=== PATIENT | female | born 1995 | race Hispanic/Latino ===

== ENCOUNTER 2019-03-08 00:05 | Outpatient (CLI) | payer BC, MEDICAID ==
[2019-03-08 00:30] VITALS: BP 120/77
--- NOTE | 2019-03-08 01:41 | Ultrasound Report ---
ULTRASOUND BIOPHYSICAL PROFILE AND LIMITED OB PELVIC ULTRASOUND INDICATION / CLINICAL INFORMATION: well-being. COMPARISON: None available. FINDINGS: BREATHING MOVEMENT = 2 GROSS BODY MOVEMENT = 2 TONE = 2 QUALITATIVE AMNIOTIC FLUID VOLUME = 2 TOTAL BIOPHYSICAL SCORE = 8/8 AMNIOTIC FLUID INDEX (cm) = 8.9 PRESENTATION: Cephalic. HEART RATE (beats per minute): 137 The placenta is located anteriorly, is grade 2 and is free of the os. IMPRESSION: 1. biophysical profile = 8/8 2. SAMINA 8.9 cm. Signer Name: Sg Mathew MD Signed: 03/08/2019 1:37 AM Workstation Name: [id number]
== END 2019-03-08 02:34 | disposition home or self-care (01) ==
LOC: TRG 00:05
PROVIDERS: ATTEND Obstetrics & Gynecology
DX: O47.1 False labor at or after 37 completed weeks of gestation (principal); Z3A.40 40 weeks gestation of pregnancy
CPT/HCPCS: 76815; 76819

== ENCOUNTER 2019-03-09 12:54 | Inpatient (IN) | payer BC, MEDICAID ==
--- NOTE | 2019-03-09 17:53 | Ultrasound Report ---
LIMITED OBSTETRIC ULTRASOUND WITH BIOPHYSICAL PROFILE HISTORY: well-being. Clinical gestational age 40 weeks 2 days COMPARISON: Obstetric ultrasound one day prior TECHNIQUE: Obstetric sonogram performed for biophysical profile assessment. FINDINGS: Gestation: Single intrauterine Presentation: Cephalic Amniotic Fluid Index: 13.0 cm ANATOMY: Detailed anatomic survey was not requested. heart rate is 145 beats per minute. BIOPHYSICAL PROFILE: Movement: 2 Tone: 2 Breathin Amniotic Fluid: 2 Total: 8 out of 8 IMPRESSION 1. Biophysical Profile 8/8. 2. SAMINA 13.0 cm. Signer Name: Amber Mckenna MD Signed: 03/09/2019 5:48 PM Workstation Name: [id number]
--- NOTE | 2019-03-09 18:02 | Ultrasound Report ---
ULTRASOUND BIOPHYSICAL PROFILE INDICATION / CLINICAL INFORMATION: Amniotic fluid index. COMPARISON: 03/08/2019 FINDINGS: BREATHING MOVEMENT = 2 GROSS BODY MOVEMENT = 2 TONE = 2 QUALITATIVE AMNIOTIC FLUID VOLUME = 2 TOTAL BIOPHYSICAL SCORE = 8/8 AMNIOTIC FLUID INDEX (cm) = 13.0 PRESENTATION: Cephalic. HEART RATE (beats per minute): 1:30 IMPRESSION: Normal amniotic fluid index of 13 cm Signer Name: Kyle Lew MD Signed: 03/09/2019 5:58 PM Workstation Name: [id number]
[2019-03-09] MEDS ORDERED: ePHEDrine SULFATE 50 MG/1 ML INJ IV PRN ×2 (18:16→20:56)
[2019-03-09] MEDS ORDERED: fentaNYL 100 MCG/2 ML INJ IV PRN (18:16)
[2019-03-09] MEDS ORDERED: TERBUTALINE 1 MG/1 ML INJ IVP PRN (18:16)
[2019-03-09] MEDS ORDERED: LIDOCAINE (2%) 20 MG/1 ML VIAL 20 ML MDV INFILTRATI ONE (18:16)
[2019-03-09] MEDS ORDERED: BUTORPHANOL 2 MG/1 ML INJ IV PRN (18:16)
[2019-03-09] MEDS ORDERED: TERBUTALINE 1 MG/1 ML INJ SUB-Q PRN (18:16)
[2019-03-09] MEDS ORDERED: MINERAL OIL 30 ML ORAL LIQD PO PRN (18:16)
[2019-03-09 18:58] LABS: Hematocrit 36.5 % (30.3-42.9); Mean Corpuscular HGB Conc 33 % (30-34); Mean Corpuscular Volume 89 fl (79-97); Platelet Count 295 K/mm3 (140-440); Red Cell Distribution Width 13.2 % (13.2-15.2)
[2019-03-09] MEDS ORDERED: OXYTOCIN 20 UNIT/1000ML DRIP 20 UNITS/1,000 ML BAG IV SCH (19:00)
[2019-03-09] MEDS ORDERED: LACTATED RINGERS 1,000 ML IV SCH (19:00)
[2019-03-09] MEDS ORDERED: OXYTOCIN DRIP 30 UNITS/500 ML BAG IV SCH (19:00)
[2019-03-09] MEDS ORDERED: NALOXONE 2 MG/2 ML INJ IV PRN (20:56)
[2019-03-09] MEDS ORDERED: fentaNYL-BUPIV 2 MCG/ML-0.125% 200 MCG/100 ML BAG EPIDURAL SCH (21:00)
[2019-03-09] MEDS ORDERED: ONDANSETRON 4 MG/2 ML INJ ONE (21:13)
[2019-03-09] MEDS ORDERED: ONDANSETRON 4 MG/2 ML INJ IV PRN (21:33)
[2019-03-10] MEDS ORDERED: BUPIVACAINE/PF (0.25%) 2.5 MG/ML 10 ML VIAL INFILTRATI ONE ×2 (01:04→09:55)
[2019-03-10] MEDS ORDERED: BUPIVACAINE/PF (0.5%) 5 MG/1 ML 10 ML VIAL INFILTRATI ONE ×2 (03:16→06:14)
[2019-03-10] MEDS ORDERED: LIDOCAINE 2%/EPINEPHRINE 1:200,000 VIAL (20 ML) INFILTRATI ONE ×2 (03:42→07:25)
[2019-03-10] MEDS ORDERED: METOCLOPRAMIDE 10 MG/2 ML INJ ONE (07:21)
[2019-03-10] MEDS ORDERED: FAMOTIDINE 20 MG/2 ML INJ IV ONE ×2 (07:21→07:38)
[2019-03-10] MEDS ORDERED: BICITRA ORAL LIQD 30ML ONE (07:21)
[2019-03-10] MEDS ORDERED: ceFAZolin/Water 2 GM/20 ML 2 GM/20 ML SYRINGE IV ONE (07:21)
[2019-03-10] MEDS ORDERED: DEXMEDETOMIDINE 200 MCG/2 ML VIAL IV ONE (07:27)
--- NOTE | 2019-03-10 07:31 | History and Physical Report ---
History of Present Illness Date of examination: 03/10/19 Date of admission: 03/09/19 12:55 Chief complaint: contractions History of present illness: This is a 23 yo at 40+3 weeks came in c/o contractions. She was noted to be 4cm and had US and BPP and during course ruptured clear fluid. Patient was admitted and given an epidural and throughout nite progressed to 8 cm. Patient had meconium thick with strip cat . At the time we discussed course and patient agreed to have a . her course include chlamydia at 7 weeks YO neg. abn GCT with 3hr normal. GBS neg. 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 denies: smoking, alcohol abuse, prescription drug abuse - Obstetrical History Expected Date of Delivery: 03/07/19 Actual Gestation: 40 Week(s) 3 Day(s) : 1 Para: 0 Hx # Term Pregnancies: 0 Number of Pregnancies: 0 Spontaneous Abortions: 0 Induced : 0 Number of Living Children: 0 Medications and Allergies Allergies Allergy/AdvReac Type Severity Reaction Status Date / Time No Known Drug Allergies Allergy Unknown Verified 03/08/19 00:31 Active Meds: Active Medications Butorphanol Tartrate (Stadol) 2 mg IV Q2H PRN PRN Reason: Pain , Severe (7-10) Ephedrine Sulfate (Ephedrine Sulfate) 10 mg IV Q2M PRN PRN Reason: Hypotension Ephedrine Sulfate (Ephedrine Sulfate) 10 mg IV Q2M PRN PRN Reason: Hypotension Fentanyl (Sublimaze) 100 mcg IV Q2H PRN PRN Reason: Labor Pain Oxytocin/Sodium Chloride (Pitocin/Ns 20 Unit/1000ml Drip) 20 units in 1,000 mls @ 125 mls/hr IV DIRECT HALEY Oxytocin/Sodium Chloride (Pitocin/Ns 30 Unit/500ml) 30 units in 500 mls @ 1 mls/hr IV TITR HALEY; Protocol Last Admin: 03/10/19 03:45 Dose: 1 milliunits/min, 1 mls/hr Documented by: Lactated Ringer's (Lactated Ringers) 1,000 mls @ 125 mls/hr IV DIRECT HALEY Fentanyl/Bupivacaine/Sodium Chlor (Fentanyl-Bupiv 2 Mcg/Ml-0.125%) 200 mcg in 100 mls @ 12 mls/hr EPIDURAL TITR HALEY; Protocol Last Admin: 03/09/19 21:19 Dose: 12 mls/hr Documented by: Mineral Oil (Mineral Oil) 30 ml PO QHS PRN PRN Reason: Constipation Naloxone HCl (Naloxone) 0.2 mg IV Q5M PRN PRN Reason: Respiratory sedation Ondansetron HCl (Zofran) 4 mg IV Q4H PRN PRN Reason: Nausea And Vomiting Terbutaline Sulfate (Brethine) 0.25 mg SUB-Q ONCE PRN PRN Reason: Hyperstimulation/Hypertonicity Terbutaline Sulfate (Brethine) 0.25 mg IVP ONCE PRN PRN Reason: Hyperstimulation/Hypertonicity Review of Systems All systems: negative - Vital Signs Vital signs: Vital Signs Pulse BP Pulse Ox 107 H 119/82 97 03/09/19 13:08 03/09/19 13:08 03/09/19 13:08 Temp Pulse Resp BP Pulse Ox 98.2 F 67 18 130/68 99 03/09/19 19:16 03/10/19 07:17 03/09/19 19:16 03/10/19 07:03 03/10/19 07:17 - Physical Exam Breasts: Positive: normal Cardiovascular: Regular rate, Normal S1 Lungs: Positive: Clear to auscultation, Normal air movement Abdomen: Positive: normal appearance, soft, normal bowel sounds. Negative: distention, tenderness, guarding Genitourinary (Female): Positive: normal external genitalia, normal perenium Vagina: Positive: normal moisture Uterus: Positive: normal size Anus/Rectum: Positive: normal perianal skin Extremities: Positive: normal Deep Tendon Reflex Grade: Normal +2 - Obstetrical FHR: category 2 Cervical Dilatation: 8 Cervical Effacement Percentage: 90 station: -1 Uterine Contraction Pattern: Regular Uterine Tone Measurement Phase: Contraction Uterine Contraction Intensity: Moderate Results Result Diagrams: 03/09/19 18:30 Abnormal lab results 03/09/19 Range/Units 18:30 WBC 19.4 H (4.5-11.0) K/mm3 All other labs normal. Ultrasound: report reviewed Assessment and Plan A/P IUP 40+3 weeks Active labor Thick meconium, NST cat 2. discused r/b/a of csec which include bleeding infection, damage to pelvic and non pelvic organs, risk of hysterectomy and . patient agrees with plan and will proceed with primary csec
[2019-03-10] MEDS ORDERED: BICITRA ORAL LIQD 30ML PO ONE (07:38)
[2019-03-10] MEDS ORDERED: METOCLOPRAMIDE 10 MG/2 ML INJ IV ONE (07:38)
[2019-03-10] MEDS ORDERED: ONDANSETRON 4 MG/2 ML INJ ONE (07:42)
[2019-03-10] MEDS ORDERED: WATER FOR IRRIG STERILE 1,500 ML BOTTLE IR ONE (07:55)
[2019-03-10] MEDS ORDERED: ceFAZolin/Water 2 GM/20 ML 2 GM/20 ML SYRINGE IV NR (08:00)
[2019-03-10] MEDS ORDERED: SODIUM CHLORIDE 0.9% IRR 1,500 ML BOTTLE IR ONE (08:00)
[2019-03-10] MEDS ORDERED: LACTATED RINGERS 1,000 ML IV SCH (08:00)
[2019-03-10] MEDS ORDERED: OXYTOCIN 20 UNIT/1000ML DRIP 20 UNITS/1,000 ML BAG IV SCH ×2 (08:00→10:00)
[2019-03-10] MEDS ORDERED: MIDAZOLAM 2 MG/2 ML INJ ONE ×2 (08:06)
[2019-03-10] MEDS ORDERED: LIDOCAINE MPF (2%) 20 MG/1 ML VIAL 5 ML ONE (08:09)
[2019-03-10] MEDS ORDERED: KETAMINE 500 MG/5 ML VIAL MDV ONE (08:57)
[2019-03-10] MEDS ORDERED: LANOLIN/ZINC/DIMETHICONE (LANSINOH) 7 GM TP PRN (09:02)
[2019-03-10] MEDS ORDERED: PROMETHAZINE 25 MG RECT SUPP PR PRN (09:02)
[2019-03-10] MEDS ORDERED: MORPHINE 4 MG/1 ML INJ IV PRN (09:02)
[2019-03-10] MEDS ORDERED: WITCH HAZEL/ GLYCERIN PAD TP PRN (09:02)
[2019-03-10] MEDS ORDERED: MORPHINE 2 MG/1 ML INJ IV PRN (09:02)
[2019-03-10] MEDS ORDERED: ONDANSETRON 4 MG/2 ML INJ IV PRN (09:02)
[2019-03-10] MEDS ORDERED: ACETAMINOPHEN 325 MG TAB PO PRN (09:02)
[2019-03-10] MEDS ORDERED: NALOXONE 0.4 MG/1 ML INJ IV PRN (09:02)
[2019-03-10] MEDS ORDERED: KETOROLAC 30 MG/1 ML INJ IV PRN ×2 (09:02)
--- NOTE | 2019-03-10 09:08 | Procedure Note ---
OB Delivery Note - Delivery Date of Delivery: 03/10/19 Surgeon: AINSLEY BIRMINGHAM Estimated blood loss: other (800 cc) - Section Preop diagnosis: arrest of dilation, nonreassuring FHR tracing Postop diagnosis: same section procedure: section Disposition: PACU Complications: none Narrative: see op note - A Gender: Male (see peds for apgars as baby assessed in NICU)
--- NOTE | 2019-03-10 09:18 | Operative Report ---
Operative Report Operative Report: DATE OF OPERATION: 03/10/2019 PREOPERATIVE DIAGNOSES: 1. Intrauterine gestation at 40+3 weeks, in active labor 2. Arrest of dilatation. 3.Thick menconium 4. NRFHT POSTOPERATIVE DIAGNOSES: 14 THE[place]ORE OPERATION PERFORMED: Primary low transverse section. SURGEON: Sabiha Puri MD ANESTHESIA: Epidural. COMPLICATIONS: None. ESTIMATED BLOOD LOSS: 800 mL. DRAINS: Roldan catheter to the bladder. SPECIMENS TO PATHOLOGY: Cord blood for routine testing. OPERATIVE FINDINGS: A viable male and birthweight of 3810g was delivered from a cephalic presentation, persistent occiput posterior position. The cord contained 3 vessels. There was normal anterior fundal placenta. The amniotic fluid was thick meconium. See Pediatric note for Apgars. The uterus, fallopian tubes and ovaries were normal. DESCRIPTION OF OPERATION: The patient was brought to the operating suite in stable condition with epidural anesthesia on board and an indwelling catheter in place in the bladder. The patient was placed supine on the operating room table and rolled to her left side with a wedge. The abdomen was prepped and draped in standard fashion for section. After testing with forceps to assure an adequate anesthetic level, the surgery was commenced. We had counseled the patient extensively regarding the risks of the surgery including but not limited to stroke, embolus, phlebitis, pain, infection, hemorrhage, as well as injury to the infant and the internal organs such as the bowel, bladder, blood vessels, nerves, kidneys, ureters and pelvic organs. The patient was aware of the postoperative morbidity issues and recovery timeframes. The patient was aware she can form adhesions, which can result in obstruction of loop of bowel or ureter or chronic pain. She was aware that should she have hemorrhage and require blood transfusion, there was a small chance for exposure to hepatitis or HIV disease. With the scalpel, a Pfannenstiel skin incision was made. Dissection was carried down sharply through the subcutaneous tissues and fascia in a transverse plane with the scalpel, electrocautery and curved Jeong scissors. The fascia was sharply freed up superiorly and inferiorly from the underlying rectus muscles, which were bluntly and sharply divided. The peritoneum was entered carefully in a clear space with a curved hemostat. The peritoneal incision was then extended vertically with Metzenbaum scissors. A retractor and bladder blade were placed. A bladder flap was created by incising transversely through the peritoneum and vesicouterine fold and then bluntly dissecting the bladder distally. With the scalpel, a low transverse hysterotomy was commenced. The serosa and myometrium were scored with the scalpel. The uterine cavity was actually entered bluntly with a curved hemostat. The uterine incision was then extended laterally with the gear grinding machine operator's fingers. An intrauterine hand was placed and the head of the infant was brought up out of the pelvis into the uterine incision. With fundal pressure, he was delivered without difficulty. The nasopharynx and oropharynx were suctioned. The cord was doubly clamped and transected. The was then handed off to the nursery personnel. A cord pH was obtained, which subsequently revealed a normal value. Further cord blood was collected for routine testing. Intravenous Pitocin and antibiotics were administered. The placenta was manually removed. The uterine cavity was then curetted with a dry sponge and freed of the remaining membranes. The edges of the uterine incision were grasped with Rosa clamps. With the massage and the Pitocin, the uterus began to firm up normally. The uterine incision was then closed in 2 layers of 0 Vicryl sutures. The first suture was placed to the endometrium and myometrium. The second suture was placed through the endopelvic fascia and also reincorporated the bladder flap peritoneum. Peritoneal lavage was then performed. The pelvis and gutters were irrigated and suctioned and cleared of all blood and clots and amniotic fluid. The uterine incision was reinspected to assure hemostasis. The uterus, tubes and ovaries were inspected and were normal. Once we were satisfied with the hemostasis, attention was turned to closure of the abdominal incision. The peritoneum, muscles and fascia were closed in layers using 0-Vicryl sutures. The subcutaneous tissue was closed with 3-0 plain sutures. The skin was closed with a subcuticular suture of 4-0 Vicryl followed by benzoin, Steri-Strips and a Telfa dressing. The patient was moved to the recovery room in stable condition with the Roldan catheter draining clear urine. Instruments, sponge and needle counts were reported as correct. Estimated blood loss was 800 mL. There were no complications
--- NOTE | 2019-03-10 09:19 | Anesthesia Consultation ---
Anesthesia Consult and Med Hx Date of service: 03/10/19 - Airway Anesthetic Teeth Evaluation: Good ROM Head & Neck: Adequate Mental/Hyoid Distance: Adequate Mallampati Class: Class II Intubation Access Assessment: Probably Good - Pulmonary Exam CTA: Yes - Cardiac Exam Cardiac Exam: RRR - Pre-Operative Health Status ASA Pre-Surgery Classification: ASA2 Proposed Anesthetic Plan: Epidural - Pulmonary Hx Smoking: No Hx Asthma: No Hx Respiratory Symptoms: No SOB: No COPD: No Home Oxygen Therapy: No Hx Pneumonia: No Hx Sleep Apnea: No - Cardiovascular System Hx Hypertension: No Hx Coronary Artery Disease: No Hx Heart Attack/AMI: No Hx Angina: No Hx Percutaneous Transluminal Coronary Angioplasty (PTCA): No Hx Cardia Arrhythmia: No Hx Pacemaker: No Hx Internal Defibrillator: No Hx Valvular Heart Disease: No Hx Heart Murmur: No Hx Peripheral Vascular Disease: No - Central Nervous System Hx Neuromuscular Disorder: No Hx Seizures: No CVA: No Hx Back Pain: No Hx Psychiatric Problems: No - Gastrointestinal Hx Ulcer: No Hx Gastroesophageal Reflux Disease: No - Endocrine Hx Renal Disease: No Hx End Stage Renal Disease: No Hx Cirrhosis: No Hx Liver Disease: No Hx Insulin Dependent Diabetes: No Hx Non-Insulin Dependent Diabetes: No Hx Thyroid Disease: No Hx Hypothyroidism: No - Hematic Hx Anemia: No Hx Sickle Cell Disease: No - Other Systems Hx Alcohol Use: No Hx Substance Use: No Hx Cancer: No Hx Obesity: No
--- NOTE | 2019-03-10 09:20 | Anesthesia Day of Surgery ---
Anesthesia Day of Surgery - Day of Surgery Patient Examined: Yes Patient H&P Reviewed: Yes Patient is NPO: Yes Beta Blockers: No Cardiac Clearance: No Pulmonary Clearance: No Cem's Test: N/A
--- NOTE | 2019-03-10 09:22 | Post Anesthesia Evaluation ---
- Post Anesthesia Evaluation Patient Participated: Yes Airway Patent: Yes Stable Respiratory Function: Yes Nausea/Vomiting: No Temp > 96.8F: Yes Pain Manageable: Yes Adequeate Hydration: Yes Anesthesia Complications: No Block Receding Appropriately: Yes Patient on Ventilator: No
[2019-03-10] MEDS ORDERED: D5W/LACTATED RINGERS 1,000 ML IV SCH (10:00)
[2019-03-10] MEDS: oxyCODONE /ACETAMINOPHEN 5-325MG TAB PO PRN ×2 (14:08→19:40)
[2019-03-10 21:07] LABS: Hematocrit 30.2 % (30.3-42.9); Hemoglobin 10.1 gm/dl (10.1-14.3)
[2019-03-10] MEDS ORDERED: SENNOSIDES 8.6 MG TAB PO PRN (22:00)
[2019-03-10] MEDS: HYDROcodone/ACETAMINOPHEN 5-325 MG TAB PO PRN (23:37)
[2019-03-11] MEDS: oxyCODONE /ACETAMINOPHEN 5-325MG TAB PO PRN ×2 (03:06→14:00)
[2019-03-11] MEDS: HYDROcodone/ACETAMINOPHEN 5-325 MG TAB PO PRN ×2 (06:02→22:15)
--- NOTE | 2019-03-11 08:00 | Progress Note ---
Assessment and Plan POD1 s/p primary c section No flatus- initiate bowel regimen VSS Mild anemia- ferrous sulfate Desires infant's circumcision inpatient- sign consent Anticipate d/c to home on POD3 Subjective - Subjective Date of service: 03/11/19 Principal diagnosis: s/p primary c section Interval history: POD1 s/p primary c/s Patient reports: appetite normal, voiding normally, pain well controlled, ambulating normally, no flatus : in NICU (for observation. On room air.) Objective - Vital Signs Latest vital signs: Vital Signs Temp Pulse Resp BP BP Pulse Ox 03/11/19 05:06 98.7 F 78 20 96/58 97 03/10/19 23:30 98.1 F 127 H 20 113/79 98 03/10/19 20:09 98.2 F 88 20 125/73 98 03/10/19 15:22 98.2 F 67 16 117/68 97 03/10/19 12:02 98.5 F 70 20 117/63 96 03/10/19 10:41 98.4 F 73 18 134/75 98 03/10/19 09:50 68 16 124/72 91 03/10/19 09:45 66 16 124/72 90 03/10/19 09:40 76 12 121/73 95 03/10/19 09:35 70 14 109/72 93 03/10/19 09:30 98.1 F 72 17 118/73 93 03/10/19 09:25 74 16 116/77 93 03/10/19 09:20 78 15 120/68 93 03/10/19 09:15 77 15 120/68 92 03/10/19 09:09 97.5 F L 73 19 111/66 Intake and Output 03/10/19 03/10/19 03/11/19 15:59 23:59 07:59 Intake Total 2200 480 Output Total 1550 2200 500 Balance 650 -1720 -500 Intake: IV 2200 Oral 480 Output: Urine 1550 2200 500 Indwelling Catheter 1350 1400 Void 800 500 Other: Total, Intake Amount 240 Total, Output Amount 350 800 500 # Voids Void 1 2 - Exam Lungs: Present: Normal air movement Abdomen: Present: soft, tenderness Uterus: Present: firm, fundal height below umbilicus Extremities: Present: normal Incision: Present: dressed - Labs Labs: Abnormal lab results 03/10/19 Range/Units 20:56 Hct 30.2 L D (30.3-42.9) %
[2019-03-11] MEDS: IBUPROFEN 800 MG TAB PO PRN (10:22)
[2019-03-11] MEDS: MAGNESIUM HYDROXIDE (MOM) ORAL LIQD UDC PO PRN (10:22)
[2019-03-11] MEDS: PRENATAL VIT27-FE FUMARATE-FOLIC ACID VIT TAB PO SCH (10:23)
[2019-03-11] MEDS: FERROUS SULFATE 325 MG TAB PO SCH (10:23)
[2019-03-11] MEDS ORDERED: MEASLES, MUMPS & RUBELLA 12,500 UNIT/0.5 ML VACCINE SUB-Q ONE (12:00)
[2019-03-11] MEDS ORDERED: TETANUS,DIPH,PERTUSS(ACELL) VACCINE 0.5 ML SYRINGE IM ONE (12:00)
[2019-03-12] MEDS: MAGNESIUM HYDROXIDE (MOM) ORAL LIQD UDC PO PRN (02:35)
[2019-03-12] MEDS: SIMETHICONE 80 MG CHEW TAB PO PRN ×2 (02:35→09:57)
[2019-03-12] MEDS: IBUPROFEN 800 MG TAB PO PRN ×2 (02:35→10:00)
--- NOTE | 2019-03-12 07:38 | Progress Note ---
Assessment and Plan POD2 s/p primary c section VSS Mild anemia- ferrous sulfate Desires 's circumcision inpatient Anticipate d/c to home on POD3 Subjective - Subjective Date of service: 03/12/19 Principal diagnosis: s/p primary c section Interval history: POD2 s/p primary c/s Patient reports: appetite normal, voiding normally, pain well controlled, flatus, ambulating normally [place]: doing well, in NICU Objective - Vital Signs Latest vital signs: Vital Signs Temp Pulse Resp BP BP Pulse Ox 03/12/19 00:00 98.0 F 79 20 123/74 98 03/11/19 16:25 97.7 F 86 20 134/86 03/11/19 08:32 97.9 F 100 H 18 126/80 98 Intake and Output 03/11/19 03/11/19 03/12/19 15:59 23:59 07:59 Intake Total 600 240 240 Balance 600 240 240 Intake: Oral 240 240 240 Intake, Free Water 360 Other: Total, Intake Amount 120 240 240 # Voids Void 2 1 1 - Exam Lungs: Present: Normal air movement Abdomen: Present: soft Uterus: Present: firm, fundal height below umbilicus Incision: Present: normal, dry, intact
[2019-03-12] MEDS: PRENATAL VIT27-FE FUMARATE-FOLIC ACID VIT TAB PO SCH (09:56)
[2019-03-12] MEDS: FERROUS SULFATE 325 MG TAB PO SCH (09:57)
[2019-03-12] MEDS: HYDROcodone/ACETAMINOPHEN 5-325 MG TAB PO PRN (15:44)
[2019-03-12] MEDS: oxyCODONE /ACETAMINOPHEN 5-325MG TAB PO PRN (22:34)
--- NOTE | 2019-03-13 08:16 | Progress Note ---
Assessment and Plan A/P POD3 s/p primary c section VSS Mild anemia- ferrous sulfate Desires 's circumcision inpatient D/C home today Subjective - Subjective Date of service: 03/13/19 Principal diagnosis: s/p primary c section Interval history: This is a 23 yo at 40+3 weeks came in c/o contractions. She was noted to be 4cm and had US and BPP and during course ruptured clear fluid. Patient was admitted and given an epidural and throughout nite progressed to 8 cm. Patient had meconium thick with strip cat . At the time we discussed course and patient agreed to have a . her course include chlamydia at 7 weeks YO neg. abn GCT with 3hr normal. GBS neg. Patient reports: appetite normal, voiding normally, pain well controlled, flatus, ambulating normally [place]: doing well, in NICU Objective - Vital Signs Latest vital signs: Vital Signs Temp Pulse Resp BP Pulse Ox 03/13/19 00:50 98.1 F 74 18 117/73 97 03/12/19 15:47 98.2 F 77 18 130/79 98 Intake and Output 03/12/19 03/13/19 03/13/19 23:59 07:59 15:59 Intake Total 960 120 Balance 960 120 Intake: Oral 600 Intake, Free Water 360 120 Other: Total, Intake Amount 600 # Voids Void 1 1 - Exam Breasts: Present: normal Cardiovascular: Present: Regular rate, Normal S1 Lungs: Present: Clear to auscultation, Normal air movement Abdomen: Present: normal appearance, soft, normal bowel sounds. Absent: distention, tenderness, guarding Vulva: both: normal Uterus: Present: normal, firm, fundal height below umbilicus. Absent: bogginess, tenderness Extremities: Present: normal Deep Tendon Reflex Grade: Normal +2 Incision: Present: normal, dry, intact
--- NOTE | 2019-03-13 08:18 | Discharge Summary ---
Providers - Providers Date of Admission: 03/09/19 12:55 Date of discharge: 03/13/19 Attending physician: AINSLEY BIRMIGNHAM MD Primary care physician: AINSLEY BIRMINGHAM MD Hospitalization Reason for admission: active labor Delivery: Procedure: section Episiotomy: none Laceration: none Incision: normal, dry, intact Other procedures: none complications: none Discharge diagnosis: IUP at term delivered baby: male Hospital course: reza sustained a csec for arrest of delivery and NRFHT. Patient did well POD3. baby in [place] . f/u in 2 weeks for incision check Condition at discharge: Good Disposition: DC-01 TO HOME OR SELFCARE Plan - Discharge Medications Prescriptions: Ferrous Sulfate [Feosol 325 MG tab] 325 mg PO BID #60 tablet Ferrous Sulfate [Ferrous Sulfate 324 MG] 324 mg PO BID #60 tablet. Ibuprofen [Motrin] 600 mg PO Q6H PRN #60 tablet PRN Reason: Pain Ibuprofen [Motrin] 800 mg PO Q8HR PRN #30 tablet PRN Reason: Pain, Moderate (4-6) oxyCODONE /ACETAMINOPHEN [Percocet 5/325] 1 tab PO Q6HR PRN #40 tablet PRN Reason: Pain - Provider Discharge Summary Activity: routine, no sex for 6 weeks, no strenuous exercise Diet: routine Instructions: routine Additional instructions: [] Smoking cessation referral if applicable(refer to patient education folder for contact #) [] Refer to [facility] Booklet Call your doctor immediately for: * Fever > 100.5 * Heavy vaginal bleeding ( >1 pad per hour) * Severe persistent headache * Shortness of breath * Reddened, hot, painful area to leg or breast * Drainage or odor from incision. * Keep incision clean and dry at all times and follow doctor's instructions regarding bathing/showering - Follow up plan Follow up: AINSLEY BIRMINGHAM MD [Primary Care Provider] - 14 Days
[2019-03-13] MEDS: oxyCODONE /ACETAMINOPHEN 5-325MG TAB PO PRN (09:12)
[2019-03-13] MEDS: FERROUS SULFATE 325 MG TAB PO SCH (09:12)
[2019-03-13] MEDS: PRENATAL VIT27-FE FUMARATE-FOLIC ACID VIT TAB PO SCH (09:12)
[2019-03-13 15:28] VITALS: BP 127/81
== END 2019-03-13 14:50 | disposition home or self-care (01) | DRG 788 ==
LOC: TRG 12:54 → LD 12:55 → TRG 18:21 → OB 03-10 10:55
PROVIDERS: ADMIT Obstetrics & Gynecology; ATTEND Obstetrics & Gynecology
PROC: 10D00Z1 Extraction of Products of Conception, Low, Open Approach (ICD-10-PCS; principal; 2019-03-10)
PROC: 3E0234Z Introduction of Serum, Toxoid and Vaccine into Muscle, Percutaneous Approach (ICD-10-PCS; 2019-03-11)
DX: O77.0 Labor and delivery complicated by meconium in amniotic fluid (principal); O76 Abnormality in fetal heart rate and rhythm complicating labor and delivery; O62.1 Secondary uterine inertia; O99.02 Anemia complicating childbirth; D64.9 Anemia, unspecified; Z3A.40 40 weeks gestation of pregnancy; Z37.0 Single live birth; Z23 Encounter for immunization; Z83.3 Family history of diabetes mellitus; Z80.3 Family history of malignant neoplasm of breast; Z80.52 Family history of malignant neoplasm of bladder
CPT/HCPCS: 36415; 76815; 76819; 85014; 85018; 85027; 86592; 86850; 86900; 86901; 88307; G0378; C1765; J0690; J2250; J2405; J2590; J2765; J3490; J7120; J7121